=== PATIENT | male | born 1985 | race Asian ===

== ENCOUNTER 2024-12-30 18:00 | Emergency (ER) | payer SELFPAY ==
[~2024-12-30] VITALS: Ht 170.2 cm; Wt 73.0 kg
[2024-12-30 18:03] VITALS: BP 142/87; PULSE 80; RESP 18; TEMP 36.7; O2SAT 100
== END 2024-12-30 19:25 | disposition home or self-care (01) ==
LOC: ER 18:00
DX: R46.2 Strange and inexplicable behavior (principal); I10 Essential (primary) hypertension; Z59.00 Homelessness unspecified
CPT/HCPCS: 99283